=== PATIENT | male | born 1965 | race African-American/Black ===

== ENCOUNTER 2025-04-07 14:45 | Emergency (ER) | payer SELFPAY ==
[~2025-04-07] VITALS: Ht 177.8 cm; Wt 92.0 kg
[2025-04-07 14:48] VITALS: O2SAT 96
[2025-04-07] MEDS: ACETAMINOPHEN 325MG TABLET PO ONE (17:23)
[2025-04-07] MEDS ORDERED: LIDO-53 TP (17:30)
[2025-04-07] MEDS ORDERED: IBUP-2028 MT (17:50)
[2025-04-07] MEDS: KETOROLAC 30MG/ML VIAL IM ONE (18:08)
[2025-04-07] MEDS: LIDOCAINE 5% PATCH TOP SCH (18:09)
[2025-04-07 18:10] VITALS: BP 135/84; PULSE 65; RESP 14; TEMP 36.7; O2SAT 99
== END 2025-04-07 18:11 | disposition home or self-care (01) ==
LOC: ER 14:45
DX: M54.2 Cervicalgia (principal); Z79.899 Other long term (current) drug therapy
CPT/HCPCS: 70450; 72125; 96372; 99285; J1885; Z7610